=== PATIENT | male | born 1950 | race African-American/Black ===

== ENCOUNTER → 2016-09-28 | Outpatient (CLI) | payer MEDICARE, OTHER | END | disposition home or self-care (01) | LOC: Rad HDHVI 13:03 | PROVIDERS: ATTEND Internal Medicine Cardiovascular Disease | DX: I50.33 Acute on chronic diastolic (congestive) heart failure (principal) | CPT/HCPCS: 93880 ==

== ENCOUNTER → 2017-04-08 | Outpatient (CLI) | payer MEDICARE, OTHER ==
[~2017-04-08] VITALS: Ht 175.3 cm; Wt 108.9 kg
== END | disposition home or self-care (01) ==
LOC: Rad HDHVI 07:58
PROVIDERS: ATTEND Internal Medicine Cardiovascular Disease
DX: I48.0 Paroxysmal atrial fibrillation (principal); I27.20 Pulmonary hypertension, unspecified
CPT/HCPCS: 78452; 93017; 96374; A9500

== ENCOUNTER → 2017-04-11 | Outpatient (CLI) | payer MEDICARE, OTHER ==
[~2017-04-11] MED LIST: ASPirin 81 mg TAB ONE; NITROGLYCERIN 0.4 MG SL TAB SL ONE
== END | disposition home or self-care (01) ==
LOC: Rad HDHVI 07:52
PROVIDERS: ATTEND Internal Medicine Cardiovascular Disease
DX: I51.7 Cardiomegaly (principal); G45.9 Transient cerebral ischemic attack, unspecified; I48.0 Paroxysmal atrial fibrillation
CPT/HCPCS: 93306

== ENCOUNTER → 2017-08-19 | Outpatient (CLI) | payer MEDICARE, OTHER ==
[~2017-08-19] VITALS: Ht 175.3 cm; Wt 113.4 kg
[~2017-08-19] MED LIST changes: -ASPirin 81 mg TAB ONE; +BENA10TA9 PO; +DABI150C PO; +EZET10TA6 PO; +FURO40TA4 PO; +METO25TA3 PO; -NITROGLYCERIN 0.4 MG SL TAB SL ONE; +POTA20TA53 PO
[2017-08-19 10:00] VITALS: BP 143/92
[2017-08-19 10:30] VITALS: BP 138/98
[2017-08-19 12:05] LABS: Basophils # (auto) 0 uL; Basophils % (auto) 0.6 % (0.0-2.0); Eosinophils # (auto) 0.1 uL; Eosinophils % (auto) 1.1 % (0.0-7.0); Hematocrit 45.4 % (41.0-53.0); Hemoglobin 15.4 g/dL (13.5-17.5); Lymphocytes # (auto) 1.4 uL; Lymphocytes % (auto) 28.9 % (10.0-50.0); Mean Corpuscular Hemoglobin 32.7 pg (28.0-32.0); Mean Corpuscular Hgb Conc. 33.8 g/dL (32.0-36.0); Mean Corpuscular Volume 96.7 fL (80.0-100.0); Monocytes # (auto) 0.5 uL; Monocytes % (auto) 10.8 % (0.0-12.0); Neutrophils # (auto) 2.9 uL; Neutrophils % (auto) 58.6 % (37.0-80.0); Nucleated Red Blood Cells % 0.3 %; Platelet Count (auto) 205 10^3/uL (140-450); Red Blood Cells 4.69 10^6/uL (4.5-5.90); Red Cell Distribution Width 12.8 % (11.8-14.3)
[2017-08-19 12:19] LABS: INR 1.06 (0.9-1.15); Partial Thromboplastin Time 35.3 sec (22.64-33.71); Prothrombin Time 11.6 sec (9.37-12.3)
[2017-08-19 12:32] LABS: BUN/Creatinine Ratio 16.8; Calcium 8.8 mg/dL (8.5-10.1); Potassium 4.1 mmol/L (3.5-5.1)
== END | disposition home or self-care (01) ==
LOC: Rad HDHVI 09:46
PROVIDERS: ATTEND Internal Medicine Cardiovascular Disease
DX: Z01.818 Encounter for other preprocedural examination (principal); I10 Essential (primary) hypertension; D64.9 Anemia, unspecified; R79.1 Abnormal coagulation profile; G45.9 Transient cerebral ischemic attack, unspecified; E78.00 Pure hypercholesterolemia, unspecified; Z87.891 Personal history of nicotine dependence; Z79.891 Long term (current) use of opiate analgesic
CPT/HCPCS: 36415; 80048; 85025; 85610; 85730; 93005; G0463

== ENCOUNTER 2017-08-23 10:40 | Day surgery (SDC) | payer MEDICARE, OTHER ==
[2017-08-23] MEDS ORDERED: LIDOCAINE HCL 2 %PF INJ 10ML AMP IJ ONE ×2 (13:44→14:42)
[2017-08-23] MEDS ORDERED: IODIXANOL 320MG/ML 100ML BTL IV ONE (13:44)
[2017-08-23] MEDS ORDERED: MIDAZOLAM HCL 1MG/1ML-2 ML VIAL ONE (13:46)
[2017-08-23] MEDS ORDERED: SODIUM CHL 0.9% 0 ML ONE (13:46)
[2017-08-23] MEDS ORDERED: fentaNYL CITRATE 100 MCG/2 ML VL ONE (13:46)
[2017-08-23] MEDS ORDERED: ANGIOMAX 250 MG VIAL IV ONE (13:47)
[2017-08-23] MEDS ORDERED: ACETAMINOPHEN 325 MG TAB PO ONE ×2 (17:28→17:30)
== END 2017-08-23 19:20 | disposition home or self-care (01) ==
LOC: CATH 10:40
PROVIDERS: ATTEND Internal Medicine Cardiovascular Disease
DX: I48.91 Unspecified atrial fibrillation (principal); R94.39 Abnormal result of other cardiovascular function study; I10 Essential (primary) hypertension; E78.5 Hyperlipidemia, unspecified; Z87.891 Personal history of nicotine dependence; Z79.891 Long term (current) use of opiate analgesic; E66.9 Obesity, unspecified; G47.30 Sleep apnea, unspecified
CPT/HCPCS: 93458; C1760; C1894; J1644; J2250; J3010; J7030; Q9967; 99152

== ENCOUNTER → 2018-01-04 | Outpatient (CLI) | payer MEDICARE, OTHER ==
[~2018-01-04] MED LIST changes: -METO25TA3 PO; +METO25TA4 PO; +READI-CAT 2 (BARIUM SULF)(VANILLA SMOOTHIE) 450ML ONE
[2018-01-04 16:14] LABS: Basophils # (auto) 0 uL; Basophils % (auto) 0.3 % (0.0-2.0); Eosinophils # (auto) 0.1 uL; Eosinophils % (auto) 1.1 % (0.0-7.0); Hematocrit 50.3 % (41.0-53.0); Hemoglobin 17.1 g/dL (13.5-17.5); Lymphocytes # (auto) 1.6 uL; Lymphocytes % (auto) 20.3 % (10.0-50.0); Mean Corpuscular Hemoglobin 33.4 pg (28.0-32.0); Mean Corpuscular Volume 98.3 fL (80.0-100.0); Monocytes # (auto) 0.8 uL; Monocytes % (auto) 9.4 % (0.0-12.0); Neutrophils # (auto) 5.5 uL; Neutrophils % (auto) 68.9 % (37.0-80.0); Nucleated Red Blood Cells % 0.5 %; Platelet Count (auto) 233 10^3/uL (140-450); Red Blood Cells 5.11 10^6/uL (4.5-5.90); Red Cell Distribution Width 12.7 % (11.8-14.3)
[2018-01-04 16:25] LABS: BUN/Creatinine Ratio 13.6; Calcium 8.8 mg/dL (8.5-10.1); Potassium 4.7 mmol/L (3.5-5.1)
== END | disposition home or self-care (01) ==
LOC: Rad HDHVI 11:41
PROVIDERS: ATTEND Internal Medicine Cardiovascular Disease
DX: K57.30 Diverticulosis of large intestine without perforation or abscess without bleeding (principal); K40.90 Unilateral inguinal hernia, without obstruction or gangrene, not specified as recurrent; I10 Essential (primary) hypertension; N28.89 Other specified disorders of kidney and ureter; D64.9 Anemia, unspecified; Z88.1 Allergy status to other antibiotic agents; Z88.0 Allergy status to penicillin
CPT/HCPCS: 36415; 74176; 80048; 85025

== ENCOUNTER → 2018-04-14 | Day surgery (SDC) | payer MEDICARE, OTHER ==
[2018-04-11 12:04] LABS: Basophils # (auto) 0 uL; Basophils % (auto) 0.6 % (0.0-2.0); Eosinophils # (auto) 0.1 uL; Hematocrit 51.7 % (41.0-53.0); Hemoglobin 17.5 g/dL (13.5-17.5); Lymphocytes # (auto) 1.6 uL; Lymphocytes % (auto) 26.2 % (10.0-50.0); Mean Corpuscular Hemoglobin 32.8 pg (28.0-32.0); Mean Corpuscular Hgb Conc. 33.8 g/dL (32.0-36.0); Monocytes # (auto) 0.6 uL; Monocytes % (auto) 10.3 % (0.0-12.0); Neutrophils # (auto) 3.8 uL; Neutrophils % (auto) 61.9 % (37.0-80.0); Nucleated Red Blood Cells % 0.2 %; Platelet Count (auto) 218 10^3/uL (140-450); Red Blood Cells 5.33 10^6/uL (4.5-5.90); Red Cell Distribution Width 12.6 % (11.8-14.3); White Blood Cell 6.1 10^3/uL (4.4-10.8)
[2018-04-11 12:16] LABS: INR 1.01 (0.9-1.15); Partial Thromboplastin Time 28.4 sec (23.78-33.04); Prothrombin Time 10.8 sec (9.27-12.13)
[~2018-04-14] VITALS: Ht 175.3 cm; Wt 111.1 kg
[~2018-04-14] MED LIST changes: -BENA10TA9 PO; +LIDOCAINE VISCOUS 2% 15ML UD ONE; +METO-158 PO; -METO25TA4 PO; -READI-CAT 2 (BARIUM SULF)(VANILLA SMOOTHIE) 450ML ONE; +SODIUM CHLORIDE LOCK 10 ML ONE; +diphenhdrAMINE HCL 50 MG/1 ML VL ONE
[2018-04-14] MEDS: MIDAZOLAM HCL 5 MG/ML-1ML VIAL ONE ×3 (10:25→10:39)
[2018-04-14] MEDS: fentaNYL CITRATE 100 MCG/2 ML VL ONE ×3 (10:25→10:39)
[2018-04-14 11:23] VITALS: BP 142/80
== END | disposition home or self-care (01) ==
LOC: GI 08:20
PROVIDERS: ATTEND Internal Medicine Gastroenterology
DX: K63.5 Polyp of colon (principal); K64.8 Other hemorrhoids; K57.30 Diverticulosis of large intestine without perforation or abscess without bleeding; K29.50 Unspecified chronic gastritis without bleeding; E66.9 Obesity, unspecified; Z88.1 Allergy status to other antibiotic agents; Z68.36 Body mass index [BMI] 36.0-36.9, adult; Z90.49 Acquired absence of other specified parts of digestive tract; Z79.899 Other long term (current) drug therapy; Z88.8 Allergy status to other drugs, medicaments and biological substances
CPT/HCPCS: 36415; 43239; 45380; 85025; 85610; 85730; A6257; J1200; J2250; J3010; J7030; 99153; G0500

== ENCOUNTER → 2018-08-07 | Outpatient (CLI) | payer MEDICARE, OTHER ==
[~2018-08-07] MED LIST changes: +BENA10TA9 PO; -LIDOCAINE VISCOUS 2% 15ML UD ONE; -SODIUM CHLORIDE LOCK 10 ML ONE; -diphenhdrAMINE HCL 50 MG/1 ML VL ONE
[2018-08-07 10:10] VITALS: BP 135/84
--- NOTE | 2018-08-07 10:10 | NUR ---
Pre-Op Discharge Summary: See e-MAR for any medications given for this visit. Pre-op orders received and carried out per MD of EKG, LABS and chest xrays. Patient given a copy of EKG with instructions to go to [facility] out patient for further follow up care.
[2018-08-07 11:27] VITALS: BP 125/90
[2018-08-07 13:13] LABS: Partial Thromboplastin Time 27.9 sec (23.78-33.04); Prothrombin Time 10.7 sec (9.27-12.13)
[2018-08-07 13:16] LABS: Potassium 4.1 mmol/L (3.5-5.1)
[2018-08-07 13:21] LABS: BUN/Creatinine Ratio 16.5
[2018-08-07 14:13] LABS: Basophils # (auto) 0 uL; Basophils % (auto) 0.5 % (0.0-2.0); Eosinophils # (auto) 0 uL; Eosinophils % (auto) 0.4 % (0.0-7.0); Hematocrit 50.8 % (41.0-53.0); Hemoglobin 17.1 g/dL (13.5-17.5); Lymphocytes # (auto) 1.4 uL; Lymphocytes % (auto) 19.8 % (10.0-50.0); Mean Corpuscular Hemoglobin 33.4 pg (28.0-32.0); Mean Corpuscular Hgb Conc. 33.7 g/dL (32.0-36.0); Monocytes # (auto) 0.6 uL; Monocytes % (auto) 7.9 % (0.0-12.0); Neutrophils # (auto) 5.2 uL; Neutrophils % (auto) 71.4 % (37.0-80.0); Nucleated Red Blood Cells % 0.3 %; Platelet Count (auto) 223 10^3/uL (140-450); Red Blood Cells 5.13 10^6/uL (4.5-5.90); White Blood Cell 7.3 10^3/uL (4.4-10.8)
== END | disposition home or self-care (01) ==
LOC: Rad HDHVI 09:47
PROVIDERS: ATTEND Internal Medicine Cardiovascular Disease
DX: Z01.812 Encounter for preprocedural laboratory examination (principal); I11.0 Hypertensive heart disease with heart failure; I50.30 Unspecified diastolic (congestive) heart failure; D64.9 Anemia, unspecified; R79.1 Abnormal coagulation profile; E78.5 Hyperlipidemia, unspecified; I48.91 Unspecified atrial fibrillation; R94.31 Abnormal electrocardiogram [ECG] [EKG]
CPT/HCPCS: 36415; 71046; 80048; 85025; 85610; 85730; 93005; G0463

== ENCOUNTER 2018-08-10 06:49 | Inpatient (IN) | payer MEDICARE, OTHER | END 2018-08-11 16:49 | disposition home or self-care (01) | LOC: CATH 06:49 → TELE-WESTW 13:07 | PROC: 0JH606Z Insertion of Pacemaker, Dual Chamber into Chest Subcutaneous Tissue and Fascia, Open Approach (ICD-10-PCS; principal; ~2018-08-10) | PROC: 02HK3JZ Insertion of Pacemaker Lead into Right Ventricle, Percutaneous Approach (ICD-10-PCS; ~2018-08-10) | PROC: 02H63JZ Insertion of Pacemaker Lead into Right Atrium, Percutaneous Approach (ICD-10-PCS; ~2018-08-10) | PROC: B51N1ZZ Fluoroscopy of Left Upper Extremity Veins using Low Osmolar Contrast (ICD-10-PCS; ~2018-08-10) | PROC: B5171ZZ Fluoroscopy of Left Subclavian Vein using Low Osmolar Contrast (ICD-10-PCS; ~2018-08-10) | DX: I48.91 Unspecified atrial fibrillation (principal); D68.69 Other thrombophilia; I50.32 Chronic diastolic (congestive) heart failure; I11.0 Hypertensive heart disease with heart failure ==

== ENCOUNTER → 2018-12-18 | Outpatient (CLI) | payer MEDICARE, OTHER ==
[~2018-12-18] VITALS: Ht 175.3 cm; Wt 114.8 kg
[~2018-12-18] MED LIST changes: -DABI150C PO; +DABI150C5 PO; +EZET10TA22 PO; -EZET10TA6 PO; +POTA-220 PO; -POTA20TA53 PO
== END | disposition home or self-care (01) ==
LOC: Rad HDHVI 09:05
PROVIDERS: ATTEND Internal Medicine Cardiovascular Disease
DX: I08.1 Rheumatic disorders of both mitral and tricuspid valves (principal); E78.00 Pure hypercholesterolemia, unspecified; I27.20 Pulmonary hypertension, unspecified; I49.5 Sick sinus syndrome; R00.2 Palpitations; I11.0 Hypertensive heart disease with heart failure; I50.32 Chronic diastolic (congestive) heart failure; Z95.0 Presence of cardiac pacemaker
CPT/HCPCS: 78452; 93017; 93306; 96374; A9500

== ENCOUNTER 2019-01-31 07:01 | Day surgery (SDC) | payer MEDICARE, OTHER ==
[2019-01-29 10:58] LABS: Basophils # (auto) 0.1 uL; Basophils % (auto) 0.7 % (0.0-2.0); Eosinophils # (auto) 0.1 uL; Eosinophils % (auto) 1.5 % (0.0-7.0); Hematocrit 49.8 % (41.0-53.0); Hemoglobin 17.4 g/dL (13.5-17.5); Lymphocytes # (auto) 1.3 uL; Lymphocytes % (auto) 19.8 % (10.0-50.0); Mean Corpuscular Hemoglobin 33.2 pg (28.0-32.0); Mean Corpuscular Hgb Conc. 34.9 g/dL (32.0-36.0); Mean Corpuscular Volume 95.3 fL (80.0-100.0); Monocytes # (auto) 0.7 uL; Monocytes % (auto) 9.8 % (0.0-12.0); Neutrophils # (auto) 4.6 uL; Neutrophils % (auto) 68.2 % (37.0-80.0); Nucleated Red Blood Cells % 0.1 %; Platelet Count (auto) 197 10^3/uL (140-450); Red Blood Cells 5.23 10^6/uL (4.5-5.90); Red Cell Distribution Width 13.2 % (11.8-14.3); White Blood Cell 6.8 10^3/uL (4.4-10.8)
[2019-01-29 11:07] LABS: Urine Bacteria NONE SEEN /hpf (None Seen); Urine Blood Negative /uL (Negative); Urine Specific Gravity 1.011 (1.001-1.035); Urine WBC <1 /hpf (0 - 3)
[2019-01-29 11:16] LABS: INR 0.94 (0.9-1.15); Partial Thromboplastin Time 25.6 sec (23.64-32.05)
[2019-01-29 11:31] LABS: Potassium 4.3 mmol/L (3.5-5.1)
[2019-01-29 11:38] LABS: Albumin 3.7 g/dL (3.4-5.0); BUN/Creatinine Ratio 18.5; Bilirubin, Total 0.5 mg/dL (0.2-1.0); Calcium 9.1 mg/dL (8.5-10.1); Total Protein 7.2 g/dL (6.4-8.2)
[~2019-01-31] VITALS: Ht 175.3 cm; Wt 113.4 kg
[~2019-01-31 07:01] MED LIST changes: -BENA10TA9 PO; +VALS80TA42 PO
[2019-01-31] MEDS ORDERED: LEVOFLOXACIN 500MG 100 ML IV ONE (07:33)
[2019-01-31] MEDS ORDERED: MEPERIDINE HCL (25 MG/ML) 1ML VIAL ONE (08:07)
[2019-01-31] MEDS ORDERED: fentaNYL CITRATE 100 MCG/2 ML VL ONE (08:08)
[2019-01-31] MEDS ORDERED: ONDANSETRON HCL 4 MG/2 ML VIAL ONE (08:08)
[2019-01-31] MEDS ORDERED: ROCURONIUM 10MG/ML 10ML VIAL IV ONE (08:08)
[2019-01-31] MEDS ORDERED: MIDAZOLAM HCL 1MG/1ML-2 ML VIAL ONE (08:08)
[2019-01-31] MEDS ORDERED: SODIUM CHLORIDE LOCK 10 ML ONE (08:08)
[2019-01-31] MEDS ORDERED: PROPOFOL 10 MG/ML 20 ML IV ONE (08:08)
[2019-01-31] MEDS ORDERED: SUCCINYLCHOLINE CHLORIDE 20 MG/ML 10ML VIAL IV ONE (08:39)
[2019-01-31] MEDS ORDERED: BUPIVACAINE 0.25% INJ 50ML VIAL ONE (08:39)
[2019-01-31] MEDS ORDERED: LIDOCAINE W/ EPINEPHRINE 1% 20ML VIAL ONE (08:39)
[2019-01-31] MEDS ORDERED: METOCLOPRAMIDE HCL 5MG/ml INJ 2ml VIAL IV PRN (09:15)
[2019-01-31] MEDS ORDERED: fentaNYL CITRATE 100 MCG/2 ML VL IV PRN (09:15)
[2019-01-31] MEDS ORDERED: HYDROmorphone HCL 2 MG/ML VL IV PRN (09:15)
[2019-01-31] MEDS ORDERED: METOPROLOL TARTRATE 1MG/1ML-5ML VIAL IV ONE (09:25)
[2019-01-31 11:03] VITALS: BP 123/83
== END 2019-01-31 10:13 | disposition home or self-care (01) ==
LOC: SUR 07:01
PROVIDERS: ATTEND Surgery
DX: K40.90 Unilateral inguinal hernia, without obstruction or gangrene, not specified as recurrent (principal); E66.8 Other obesity; G47.33 Obstructive sleep apnea (adult) (pediatric); I10 Essential (primary) hypertension; E78.5 Hyperlipidemia, unspecified; I35.1 Nonrheumatic aortic (valve) insufficiency; I70.0 Atherosclerosis of aorta; Z68.36 Body mass index [BMI] 36.0-36.9, adult; Z88.1 Allergy status to other antibiotic agents; Z88.8 Allergy status to other drugs, medicaments and biological substances; Z98.890 Other specified postprocedural states; Z95.0 Presence of cardiac pacemaker
CPT/HCPCS: 36415; 49505; 80053; 81001; 85025; 85610; 85730; 88302; J0330; J1956; J2175; J2250; J2405; J2704; J3010; J3490; J3590

== ENCOUNTER → 2019-09-07 | Outpatient (CLI) | payer MEDICARE, OTHER | END | disposition home or self-care (01) | LOC: Rad HDHVI 10:52 | PROVIDERS: ATTEND Internal Medicine Cardiovascular Disease | DX: R00.2 Palpitations (principal); I10 Essential (primary) hypertension; I48.91 Unspecified atrial fibrillation | CPT/HCPCS: 93306 ==

== ENCOUNTER → 2020-01-10 | Outpatient (CLI) | payer MEDICARE, OTHER | END | disposition home or self-care (01) | LOC: Rad HDHVI 09:26 | PROVIDERS: ATTEND Internal Medicine Cardiovascular Disease | DX: I10 Essential (primary) hypertension (principal); E78.00 Pure hypercholesterolemia, unspecified; I48.91 Unspecified atrial fibrillation; Z95.0 Presence of cardiac pacemaker | CPT/HCPCS: 78452; 93017; 96374; A9500 ==

== ENCOUNTER → 2020-01-21 | Outpatient (CLI) | payer MEDICARE, OTHER | END | disposition home or self-care (01) | LOC: Rad HDHVI 10:48 | PROVIDERS: ATTEND Internal Medicine Cardiovascular Disease | DX: R06.02 Shortness of breath (principal); E78.00 Pure hypercholesterolemia, unspecified; R07.89 Other chest pain | CPT/HCPCS: 93306 ==

== ENCOUNTER → 2020-05-06 | Outpatient (CLI) | payer MEDICARE, OTHER ==
[2020-05-06 12:08] LABS: Urine Blood TRACE /uL (Negative); Urine Specific Gravity 1.015 (1.001-1.035)
== END | disposition home or self-care (01) ==
LOC: LAB 10:58
PROVIDERS: ATTEND Internal Medicine Cardiovascular Disease
DX: N39.0 Urinary tract infection, site not specified (principal)
CPT/HCPCS: 81003

== ENCOUNTER → 2020-06-06 | Outpatient (CLI) | payer MEDICARE, OTHER ==
[~2020-06-06] MED LIST changes: +IOHEXOL 350 MG/ML 100ML IJ ONE; +VALS80TA4 PO; -VALS80TA42 PO
[2020-06-06 08:32] VITALS: BP 133/87
[2020-06-06 10:23] VITALS: BP 144/81
== END | disposition home or self-care (01) ==
LOC: Rad HDHVI 08:27
PROVIDERS: ATTEND Internal Medicine Cardiovascular Disease
DX: N20.1 Calculus of ureter (principal); K57.30 Diverticulosis of large intestine without perforation or abscess without bleeding; I70.0 Atherosclerosis of aorta; K44.9 Diaphragmatic hernia without obstruction or gangrene; K40.90 Unilateral inguinal hernia, without obstruction or gangrene, not specified as recurrent; K42.9 Umbilical hernia without obstruction or gangrene; N28.89 Other specified disorders of kidney and ureter; K57.10 Diverticulosis of small intestine without perforation or abscess without bleeding; J84.10 Pulmonary fibrosis, unspecified; K76.89 Other specified diseases of liver; R31.9 Hematuria, unspecified; R94.4 Abnormal results of kidney function studies; Z95.0 Presence of cardiac pacemaker
CPT/HCPCS: 36415; 74177; 82565; 84520; G0463; Q9967

== ENCOUNTER → 2020-12-10 | Outpatient (CLI) | payer MEDICARE, OTHER ==
[~2020-12-10] MED LIST changes: -IOHEXOL 350 MG/ML 100ML IJ ONE
== END | disposition home or self-care (01) ==
LOC: Rad HDHVI 14:42
PROVIDERS: ATTEND Internal Medicine Cardiovascular Disease
DX: I10 Essential (primary) hypertension (principal); R06.02 Shortness of breath
CPT/HCPCS: 93306

== ENCOUNTER → 2020-12-12 | Outpatient (CLI) | payer MEDICARE, OTHER ==
[~2020-12-12] VITALS: Ht 175.3 cm; Wt 115.7 kg
[~2020-12-12] MED LIST changes: +METOPROLOL SUCCINATE XL 50 MG TAB PO ONE
[2020-12-12 11:26] LABS: Urine Blood Negative /uL (Negative); Urine Specific Gravity 1.005 (1.001-1.035)
[2020-12-12 11:27] LABS: Basophils # (auto) 0 10 ^3/uL (0-0.2); Eosinophils # (auto) 0.1 10 ^3/uL (0-0.8); Eosinophils % (auto) 1.2 % (0.0-7.0); Lymphocytes # (auto) 1.7 10 ^3/uL (0.4-5.4)
[2020-12-12 11:29] LABS: Basophils % (auto) 0.4 % (0.0-2.0); Hemoglobin 15.4 g/dL (13.5-17.5); Lymphocytes % (auto) 22.7 % (10.0-50.0); Mean Corpuscular Hemoglobin 33.9 pg (28.0-32.0); Mean Corpuscular Hgb Conc. 34.2 g/dL (32.0-36.0); Mean Corpuscular Volume 98.9 fL (80.0-100.0); Monocytes # (auto) 0.7 10 ^3/uL (0-1.3); Monocytes % (auto) 9.4 % (0.0-12.0); Neutrophils # (auto) 5.1 10 ^3/uL (1.6-8.6); Neutrophils % (auto) 66.3 % (37.0-80.0); Red Blood Cells 4.55 10^6/uL (4.5-5.90); Red Cell Distribution Width 12.9 % (11.8-14.3); White Blood Cell 7.7 10^3/uL (4.4-10.8)
[2020-12-12 11:39] LABS: Albumin 3.5 g/dL (3.4-5.0); Potassium 3.7 mmol/L (3.5-5.1)
[2020-12-12 11:49] LABS: BUN/Creatinine Ratio 8.3; Bilirubin, Total 0.6 mg/dL (0.2-1.0); Calcium 9.7 mg/dL (8.5-10.1); Total Protein 7.4 g/dL (6.4-8.2)
[2020-12-12 11:50] LABS: Free T4 (Free Thyroxine) 1.38 ng/dL (0.89-1.76)
[2020-12-12 11:51] LABS: Prostate Specific Antigen 0.54 ng/mL (0.0-4.0)
== END | disposition home or self-care (01) ==
LOC: Rad HDHVI 09:43
PROVIDERS: ATTEND Internal Medicine Cardiovascular Disease
DX: C61 Malignant neoplasm of prostate (principal); I11.0 Hypertensive heart disease with heart failure; D51.3 Other dietary vitamin B12 deficiency anemia; E11.9 Type 2 diabetes mellitus without complications; E55.9 Vitamin D deficiency, unspecified; D64.9 Anemia, unspecified; R00.2 Palpitations; R53.1 Weakness; R30.0 Dysuria; I50.33 Acute on chronic diastolic (congestive) heart failure; I48.91 Unspecified atrial fibrillation; R06.02 Shortness of breath; E78.5 Hyperlipidemia, unspecified; I25.10 Atherosclerotic heart disease of native coronary artery without angina pectoris
CPT/HCPCS: 36415; 78452; 80053; 80061; 81003; 82306; 82607; 83036; 84153; 84403; 84439; 84443; 85025; 93017; 96374; A9500

== ENCOUNTER → 2021-05-26 | Outpatient (CLI) | payer MEDICARE, OTHER ==
[~2021-05-26] MED LIST changes: -METOPROLOL SUCCINATE XL 50 MG TAB PO ONE
[2021-05-26 11:24] LABS: Urine Blood Negative /uL (Negative); Urine Specific Gravity 1.005 (1.001-1.035)
[2021-05-26 11:30] LABS: Basophils # (auto) 0 10 ^3/uL (0-0.2); Basophils % (auto) 0.5 % (0.0-2.0); Eosinophils # (auto) 0.1 10 ^3/uL (0-0.8); Eosinophils % (auto) 1.4 % (0.0-7.0); Hematocrit 48.6 % (41.0-53.0); Hemoglobin 16.9 g/dL (13.5-17.5); Lymphocytes % (auto) 29.9 % (10.0-50.0); Mean Corpuscular Hemoglobin 33.8 pg (28.0-32.0); Mean Corpuscular Hgb Conc. 34.8 g/dL (32.0-36.0); Mean Corpuscular Volume 96.9 fL (80.0-100.0); Monocytes # (auto) 0.6 10 ^3/uL (0-1.3); Monocytes % (auto) 9.6 % (0.0-12.0); Neutrophils # (auto) 3.9 10 ^3/uL (1.6-8.6); Neutrophils % (auto) 58.6 % (37.0-80.0); Nucleated Red Blood Cells % 0.2 %; Red Blood Cells 5.02 10^6/uL (4.5-5.90); Red Cell Distribution Width 12.8 % (11.8-14.3); White Blood Cell 6.7 10^3/uL (4.4-10.8)
[2021-05-26 11:36] LABS: Potassium 3.6 mmol/L (3.5-5.1)
[2021-05-26 11:44] LABS: Free T4 (Free Thyroxine) 1.31 ng/dL (0.89-1.76); Prostate Specific Antigen 0.5 ng/mL (0.0-4.0)
[2021-05-26 11:53] LABS: Albumin 3.6 g/dL (3.4-5.0); BUN/Creatinine Ratio 14.7; Bilirubin, Total 0.5 mg/dL (0.2-1.0); Total Protein 7.8 g/dL (6.4-8.2)
== END | disposition home or self-care (01) ==
LOC: LAB 08:47
PROVIDERS: ATTEND Internal Medicine Cardiovascular Disease
DX: C61 Malignant neoplasm of prostate (principal); E11.9 Type 2 diabetes mellitus without complications; D51.3 Other dietary vitamin B12 deficiency anemia; D64.9 Anemia, unspecified; E55.9 Vitamin D deficiency, unspecified; I10 Essential (primary) hypertension; R00.2 Palpitations; R53.1 Weakness; R30.0 Dysuria
CPT/HCPCS: 36415; 80053; 80061; 81003; 82306; 82607; 83036; 84153; 84403; 84439; 84443; 85025

== ENCOUNTER → 2021-12-09 | Outpatient (CLI) | payer MEDICARE, OTHER | END | disposition home or self-care (01) | LOC: Rad HDHVI 09:49 | PROVIDERS: ATTEND Internal Medicine Cardiovascular Disease | DX: I08.1 Rheumatic disorders of both mitral and tricuspid valves (principal); I10 Essential (primary) hypertension; R42 Dizziness and giddiness | CPT/HCPCS: 93306; 93880 ==

== ENCOUNTER → 2021-12-17 | Outpatient (CLI) | payer MEDICARE, OTHER ==
[~2021-12-17] VITALS: Ht 175.3 cm; Wt 117.9 kg
[~2021-12-17] MED LIST changes: +METOPROLOL SUCCINATE XL 50 MG TAB PO ONE
== END | disposition home or self-care (01) ==
LOC: Rad HDHVI 09:20
PROVIDERS: ATTEND Internal Medicine Cardiovascular Disease
DX: I11.0 Hypertensive heart disease with heart failure (principal); I50.33 Acute on chronic diastolic (congestive) heart failure; E78.5 Hyperlipidemia, unspecified; R06.02 Shortness of breath; I48.91 Unspecified atrial fibrillation; Z95.0 Presence of cardiac pacemaker
CPT/HCPCS: 78452; 93017; 96374; A9500

== ENCOUNTER → 2023-02-03 | Outpatient (CLI) | payer MEDICARE, OTHER ==
[~2023-02-03] MED LIST changes: -METOPROLOL SUCCINATE XL 50 MG TAB PO ONE
== END | disposition home or self-care (01) ==
LOC: Rad HDHVI 09:57
PROVIDERS: ATTEND Internal Medicine Cardiovascular Disease
DX: I08.3 Combined rheumatic disorders of mitral, aortic and tricuspid valves (principal); I11.9 Hypertensive heart disease without heart failure; R42 Dizziness and giddiness
CPT/HCPCS: 93306

== ENCOUNTER → 2023-02-04 | Outpatient (CLI) | payer MEDICARE, OTHER ==
[~2023-02-04] VITALS: Ht 175.3 cm; Wt 118.8 kg
== END | disposition home or self-care (01) ==
LOC: Rad HDHVI 09:50
PROVIDERS: ATTEND Internal Medicine Cardiovascular Disease
DX: I25.10 Atherosclerotic heart disease of native coronary artery without angina pectoris (principal); R07.89 Other chest pain; R00.2 Palpitations; R06.02 Shortness of breath; R06.01 Orthopnea; I48.0 Paroxysmal atrial fibrillation; R42 Dizziness and giddiness; E78.5 Hyperlipidemia, unspecified; Z95.0 Presence of cardiac pacemaker
CPT/HCPCS: 78452; 93017; 96374; A9500

== ENCOUNTER → 2023-10-27 | Outpatient (CLI) | payer MEDICARE, OTHER | END | disposition home or self-care (01) | LOC: Rad HDHVI 09:47 | PROVIDERS: ATTEND Internal Medicine Cardiovascular Disease | DX: I08.3 Combined rheumatic disorders of mitral, aortic and tricuspid valves (principal); R00.2 Palpitations | CPT/HCPCS: 93306 ==

== ENCOUNTER → 2023-11-23 | Outpatient (CLI) | payer MEDICARE, OTHER ==
[~2023-11-23] MED LIST changes: +CHOL50007 PO; +COEN200C25 PO; +MAGN100T9 PO; +MAGN400C3 PO; +METO-6 PO; +METO1TAB9 PO; +METO5TAB5 PO; +MULT-928 PO; +OMEG100062 PO; +OMEG1CAP PO; +PREG50CA PO; +SILD-60 PO; +TEST200I32 IJ; +VALS320T PO
[2023-11-23 10:20] VITALS: BP 117/84; PULSE 80; RESP 18; O2SAT 94
[2023-11-23 10:34] VITALS: BP 136/89; PULSE 81; RESP 18; O2SAT 94
== END | disposition home or self-care (01) ==
LOC: Rad HDHVI 09:50
PROVIDERS: ATTEND Internal Medicine Cardiovascular Disease
DX: Z01.818 Encounter for other preprocedural examination (principal); I73.9 Peripheral vascular disease, unspecified
CPT/HCPCS: 71046; 93005; G0463

== ENCOUNTER 2023-11-24 07:08 | Day surgery (SDC) | payer MEDICARE, OTHER ==
[2023-11-23 12:48] LABS: Basophils # (auto) 0.1 10 ^3/uL (0-0.2); Basophils % (auto) 1.3 % (0.0-2.0); Eosinophils # (auto) 0.1 10 ^3/uL (0-0.8); Eosinophils % (auto) 0.8 % (0.0-7.0); Hematocrit 56.7 % (41.0-53.0); Hemoglobin 19.3 g/dL (13.5-17.5); Lymphocytes # (auto) 1.9 10 ^3/uL (0.4-5.4); Lymphocytes % (auto) 18.8 % (10.0-50.0); Mean Corpuscular Hemoglobin 33.4 pg (28.0-32.0); Mean Corpuscular Hgb Conc. 34.1 g/dL (32.0-36.0); Monocytes # (auto) 0.8 10 ^3/uL (0-1.3); Monocytes % (auto) 7.6 % (0.0-12.0); Neutrophils # (auto) 7.1 10 ^3/uL (1.6-8.6); Neutrophils % (auto) 71.5 % (37.0-80.0); Red Blood Cells 5.79 10^6/uL (4.5-5.90); Red Cell Distribution Width 14.6 % (11.8-14.3)
[2023-11-23 13:02] LABS: INR 1.34 (0.9-1.15); Prothrombin Time 13.9 sec (9.3-11.8)
[2023-11-23 13:06] LABS: Chloride 102 mmol/L (98-107); Potassium 3.6 mmol/L (3.5-5.1); Sodium 142 mmol/L (136-145)
[2023-11-23 13:07] LABS: Anion Gap 7 (5-15); Calcium 10.6 mg/dL (8.7-10.4); Carbon Dioxide 33 mmol/L (20-30)
[2023-11-23 13:12] LABS: BUN/Creatinine Ratio 14.6 (10.0-20.0); Blood Urea Nitrogen 19 mg/dL (9-23); Glucose 96 mg/dL (74-106)
[~2023-11-24] VITALS: Ht 175.3 cm; Wt 120.2 kg
[2023-11-24] VITALS (13 sets, daily range): BP systolic 103–149; BP diastolic 71–90; PULSE 65–86; RESP 15–19; TEMP 98.5; O2SAT 95–99
[~2023-11-24 07:08] MED LIST changes: -EZET10TA22 PO; -MAGN400C3 PO; -METO-158 PO; -METO1TAB9 PO; -OMEG1CAP PO; -VALS80TA4 PO
[2023-11-24] MEDS ORDERED: HEPARIN IN NS 1000Units/500mL 1,500 ML ONE (08:10)
[2023-11-24] MEDS ORDERED: IODIXANOL 320MG/ML 100ML BTL IV ONE (08:10)
[2023-11-24] MEDS ORDERED: LIDOCAINE 2%HCL (LOCAL ANESTH.) INJ 20ML MDV ONE (08:12)
[2023-11-24] MEDS ORDERED: SODIUM CHL 0.9% 0 ML ONE (08:12)
[2023-11-24] MEDS ORDERED: fentaNYL CITRATE 100 MCG/2 ML VL ONE (08:12)
[2023-11-24] MEDS ORDERED: MIDAZOLAM HCL 2MG/2ML 2ml VIAL (1mg/ml) ONE (08:12)
[2023-11-24] MEDS ORDERED: ANGIOMAX 250 MG VIAL IV ONE (08:12)
[2023-11-24] MEDS ORDERED: IOHEXOL 350 MG/ML 100ML IJ ONE (08:35)
[2023-11-24] MEDS ORDERED: METO1TAB9 PO (09:51)
[2023-11-24] MEDS ORDERED: MAGN400C3 PO (09:51)
[2023-11-24] MEDS ORDERED: OMEG1CAP PO (09:51)
== END 2023-11-24 11:08 | disposition home or self-care (01) ==
LOC: CATH 07:08
PROVIDERS: ATTEND Internal Medicine Cardiovascular Disease
DX: I73.9 Peripheral vascular disease, unspecified (principal); I10 Essential (primary) hypertension; I25.10 Atherosclerotic heart disease of native coronary artery without angina pectoris; G47.30 Sleep apnea, unspecified; Z87.09 Personal history of other diseases of the respiratory system; Z98.890 Other specified postprocedural states; Z88.1 Allergy status to other antibiotic agents
CPT/HCPCS: 36247; 36415; 75716; 80048; 85025; 85610; 85730; C1760; C1769; C1887; C1894; J1644; J2250; J3010; Q9967; 99152

== ENCOUNTER → 2024-07-12 | Outpatient (CLI) | payer MEDICARE, OTHER ==
[~2024-07-12] MED LIST changes: -MAGN100T9 PO; +MAGN400C3 PO; -METO-6 PO; +METO1TAB9 PO; -OMEG100062 PO; +OMEG1CAP PO
== END | disposition home or self-care (01) ==
LOC: Rad HDHVI 12:43
PROVIDERS: ATTEND Internal Medicine Cardiovascular Disease
DX: I08.3 Combined rheumatic disorders of mitral, aortic and tricuspid valves (principal); I11.9 Hypertensive heart disease without heart failure; R06.02 Shortness of breath
CPT/HCPCS: 93306

== ENCOUNTER → 2024-07-18 | Outpatient (CLI) | payer MEDICARE, OTHER ==
[~2024-07-18] VITALS: Ht 175.3 cm; Wt 108.9 kg
--- NOTE | 2024-07-24 14:42 | DVHSR ---
APPROVED REPORT Exam: Nuclear Stress Test Indication: Screening for CAD Ht: 5 ft 9 in Wt: 240 lbs BSA: 2.23 m2 HR: 84 bpm BP: 117/82 mmHg BMI: 35.43 Rhythm: Atrial Fibrillation Medical History Medical History: Pacemaker, HTN, Hypercholesterolemia, SOB, Palpitations, CHF, Atrial Fibrillation Medications: Pradaxa, Furosemide, Potassium, Metoprolol, Diovan, Metolazone, Tramadol, Pregabalin, Al lopurinol, Revatio, Ozempic, Trelegy Ellipta Allergies: Augmentin, Cephalexin Stress Test Details Stress Test: Exercise stress testing was performed using a modified Jeffy protocol. HR Resting HR: 84 bpmMax Heart Rate (APMHR): 147.753949 bpm Max HR Achieved: 125 bpmTarget HR (85% APMHR): 124.355811 bpm % of APMHR: 85.03 Recovery HR: 101 bpm HR response to stress: Normal HR response to stress BP Resting BP: 117/82 mmHg Max BP: 117/82 mmHg Recovery BP: 111/81 mmHg BP response to stress: Normal blood pressure response to stress. ECG Resting ECG: Atrial Fibrillation Stress ECG: Atrial Fibrillation Arrhythmia: PVCs Recovery ECG: Atrial Fibrillation Recovery Arrhythmia: PVCs Clinical Reason for Termination: Target HR achieved Stress Symptoms: None Exercise duration: 3 min sec Exercise capacity: 2.3 METs Stress ECG Conclusion NON ISCHEMIC CLINICAL RESPONSE NON ISCHEMIC ECG RESPONSE PERFUSION SCAN SHOWS LESS THAN 10% LIKELIHOOD FOR STRESS INDUCED ISCHEMIA EF 40% NM EXAM: Myocardial Perfusion REST/STRESS Imaging Protocol: Rest Tc-99m/Stress Tc-99m 1 day Resting Data Rest SPECT myocardial perfusion imaging was performed in supine position 30 minutes following the int ravenous injection of 9.9 mCi of Tc-99m Sestamibi. Time of rest injection: 09 Time of rest imagin Administration Route: IV Administration Site: Right AC Exercise Stress At peak stress, the patient was injected intravenously with 32 mCi of Tc-99m Sestamibi. Time of stress injection: 1052 Time of stress imagin Administration Route: IV Administration Site: Right AC Heart Rate at time of stress injection: 121 bpm. Patient continued to exercise for 1 minute(s). Gated Stress SPECT was performed 15 minutes after stress injection. The images were gated to evaluate regional wall motion and calculate left ventricular ejection fracti on. Comments Cardiolite injection at 2 minutes, 9 seconds into test. Study Data Post stress, the left ventricular ejection was 40%.. Nuclear Conclusion NON ISCHEMIC CLINICAL RESPONSE NON ISCHEMIC ECG RESPONSE PERFUSION SCAN SHOWS LESS THAN 10% LIKELIHOOD FOR STRESS INDUCED ISCHEMIA EF 40%
== END | disposition home or self-care (01) ==
LOC: Rad HDHVI 09:24
PROVIDERS: ATTEND Internal Medicine Cardiovascular Disease
DX: I11.0 Hypertensive heart disease with heart failure (principal); I50.23 Acute on chronic systolic (congestive) heart failure; E78.00 Pure hypercholesterolemia, unspecified; Z13.6 Encounter for screening for cardiovascular disorders; I48.91 Unspecified atrial fibrillation; R06.02 Shortness of breath; R00.2 Palpitations; E11.42 Type 2 diabetes mellitus with diabetic polyneuropathy; I73.9 Peripheral vascular disease, unspecified; I49.3 Ventricular premature depolarization; Z88.0 Allergy status to penicillin; Z88.1 Allergy status to other antibiotic agents; Z95.0 Presence of cardiac pacemaker
CPT/HCPCS: 78452; 93017; A9500; 96374